=== PATIENT | female | born 1965 | race Caucasian/White ===

== ENCOUNTER 2019-03-26 21:20 | Emergency (ER) | payer BC ==
--- NOTE | 2019-03-26 22:27 | RADIOLOGY REPORT (SQ) ---
EXAM DESCRIPTION: XR WRIST 3 OR MORE VIEWS COMPLETED DATE/TME: 03/26/2019 21:37 CLINICAL HISTORY: 53 years, Female, bone tenderness COMPARISON: None. NUMBER OF VIEWS: 3 TECHNIQUE: 3 view left wrist LIMITATIONS: None. FINDINGS: Osteopenia. Comminuted and mildly displaced intra-articular fracture deformity of the distal radial metaphysis. Dorsal angulation. Associated soft tissue swelling. IMPRESSION: Comminuted intra-articular distal radial fracture copyright 2010 [employer]- All Rights Reserved
[2019-03-26] MEDS ORDERED: PROPOFOL INJ 200 MG/20 ML VIAL IV ONE (23:14)
[2019-03-26] MEDS ORDERED: MORPHINE SULFATE 10 MG/ML INJ IV ONE (23:14)
[2019-03-26] MEDS ORDERED: ONDANSETRON HCL INJ/PF 4 MG/2 ML SDV IV ONE (23:19)
--- NOTE | 2019-03-26 23:33 | ER Document Report ---
ED General - General Chief Complaint: Wrist Injury Stated Complaint: WRIST INJURY Time Seen by Provider: 03/26/19 22:53 Notes: 53-year-old female who was roller skating when she slipped and fell on her outstretched left hand. Has a deformity to her distal forearm and complains of numbness and tingling and difficulty moving the left first and second digit. Pain is a 5 out of 5. Denies any other associated injury. Denies taking any blood thinners. Last time she ate was at 3 PM today. - Related Data Allergies/Adverse Reactions: No Known Allergies Allergy (Verified 03/26/19 21:57) Home Medications: lipitor, pantoprazole, zoloft, zofran Past Medical History - General Information source: Patient, Relative - Social History Smoking Status: Never Smoker Frequency of alcohol use: Rare Drug Abuse: None Family History: Reviewed & Not Pertinent Patient has suicidal ideation: No Patient has homicidal ideation: No - Past Medical History Cardiac Medical History: Reports: Hx Hypercholesterolemia GI Medical History: Reports: Hx Gastroesophageal Reflux Disease Psychiatric Medical History: Reports: Hx Depression Review of Systems - Review of Systems Constitutional: No symptoms reported Cardiovascular: No symptoms reported Respiratory: No symptoms reported Gastrointestinal: No symptoms reported Musculoskeletal: See HPI Skin: No symptoms reported Hematologic/Lymphatic: No symptoms reported Neurological/Psychological: See HPI Physical Exam - Vital signs Vitals: Temp Pulse Resp BP Pulse Ox 98.0 F 80 18 130/84 H 96 03/26/19 21:36 03/26/19 21:36 03/26/19 21:36 03/26/19 21:36 03/26/19 21:36 - Notes Notes: GENERAL: Alert, interacts well. No acute distress. HEAD: Normocephalic, atraumatic EYES: Pupils equal, round and reactive to light, extraocular movements intact. ENT: Oral mucosa moist, tongue midline. NECK: Full range of motion, supple, trachea midline. LUNGS: Clear to auscultation bilaterally, no wheezes, rales or rhonchi, no respiratory distress. HEART: Regular rate and rhythm, no murmurs, gallops, rubs. EXTREMITIES: Moves all 4 extremities spontaneously, radial pulses 2/4 bilaterally. No cyanosis. Swelling and dorsal angulation of the distal aspect of the left wrist particularly on the radial side, tenderness to palpation. NEUROLOGICAL: Alert and oriented x3, normal speech, decreased sensation to the first and second digit of the left hand, able to move first and second digit some but not completely normally. PSYCH: Normal mood, normal affect. SKIN: Warm, Dry, normal turgor, no rashes or lesions noted. Course - Re-evaluation Re-evalutation: 03/27/19 00:[address] Leong, recommended reduction, patient was given the option of hematoma block versus conscious sedation, chose conscious sedation. Performed with propofol, reduced without difficulty. Patient is flying home to [place] on Friday, will follow up with orthopedic surgeon in [place]. - Vital Signs Vital signs: Temp Pulse Resp BP Pulse Ox 16 F L 76 17 155/87 H 98 03/26/19 23:49 03/27/19 00:00 03/27/19 00:00 03/27/19 00:00 03/27/19 00:00 Procedures - Conscious Sedation Conscious sedation Time started: 23:55 Time completed: 00:08 Consent obtained: Yes Indication: Left wrist fracture Last meal: 1500 Normal healthy pt.: P1. - ASA Classification Airway Evaluation: Normal anatomy Mallampati Classification: Class 1 Used during procedure: Suction available, IV access obtained, Pulse ox on pt., front desk monitor on pt. Medications administered: Diprivan Reversal agents: None I personally performed/intraservice time: Sedation, Procedure, 30 min or less Complications: No - Immobilization Left Wrist Pre-Proc Neuro Vasc Exam: Normal Immobilizer type: Sugar tong Performed by: Provider, PCT Post-Proc Neuro Vasc Exam: Normal, Unchanged from pre-exam Alignment checked and good: Yes - Joint Reduction/Fracture Care Left Wrist Consent obtained: Yes Conscious sedation: Yes Pre-procedure NV exam: Yes Fracture: Closed Post-procedure NV exam: Yes Post-reduction x-ray: Joint reduced Reduction attempts: 1 Complications: No Discharge - Discharge Clinical Impression: Distal radius fracture, left Qualifiers: Encounter type: initial encounter Fracture type: closed Fracture morphology: Colles' Qualified Code(s): S52.532A - Colles' fracture of left radius, initial encounter for closed fracture Condition: Stable Disposition: HOME, SELF-CARE Additional Instructions: Fractured Radius The bone called the radius is fractured. This type of fracture is typically caused by falling onto the outstretched hand. You will need to see an orthopedic surgeon when you get back to [place]. This is a comminuted distal intra-articular fracture that was previously dorsally angulated. This will likely need surgery. We did reduce him to the emergency department. It has been placed in a splint. A cast or splint is used to protect the fracture. For the first few days after the injury, the arm should be elevated and ice packed. Healing takes from three to eight weeks, depending on the age of the patient and the seriousness of the fracture. Your doctor has explained the treatment plan. It's important that you follow up as instructed to prevent complications. Call the doctor or return at once if severe pain or swelling occur, or if the hand becomes numb, swollen, or discolored. Prescriptions: Oxycodone HCl/Acetaminophen [Percocet 5-325 mg Tablet] 1 - 2 tab PO Q4HP PRN #15 tablet PRN Reason: Ondansetron [Zofran Odt 4 mg Tablet] 1 - 2 tab PO Q4H PRN #15 tab.rapdis PRN Reason: For Nausea/Vomiting Referrals: LUZ LEONG JR, DO [ACTIVE PROVISIONAL STAFF] - Follow up as needed
[2019-03-27] MEDS ORDERED: PROPOFOL INJ 200 MG/20 ML VIAL IV ONE ×2 (00:02→00:11)
[2019-03-27] MEDS ORDERED: OXYCODONE-ACETAMINOPHEN 5-325 MG TABLET PO ONE (00:11)
[2019-03-27 00:13] VITALS: BP 121/89
--- NOTE | 2019-03-27 00:40 | RADIOLOGY REPORT (SQ) ---
EXAM DESCRIPTION: XR WRIST 1-2 VIEWS COMPLETED DATE/TME: 03/27/2019 00:10 CLINICAL HISTORY: 53 years ,Female post-reduction COMPARISON: None. TECHNIQUE: LEFT wrist, two view FINDINGS: There is a comminuted intra-articular fracture of the distal radius. There has been some interval reduction of the fracture when compared to the previous study with improved alignment. Overlying cast material secures fine detail. IMPRESSION: Interval reduction of the comminuted intra-articular radial fracture with improved alignment
[2019-03-27] MEDS ORDERED: ONDANSETRON ODT 4 MG TAB (6 TAB/ER DISP) PO PRN (00:51)
[2019-03-27] MEDS ORDERED: HYDROCODONE/ACETAMINOPHEN 5-325 MG (6 TAB/ER DISP) PO PRN (00:51)
[2019-03-27] MEDS ORDERED: KETOROLAC TROMETHAMINE INJ/PF 30 MG/1 ML SDV IV ONE (01:03)
[2019-03-27] MEDS ORDERED: KETOROLAC TROMETHAMINE INJ/PF 30 MG/1 ML SDV ONE (01:05)
== END 2019-03-27 01:21 | disposition home or self-care (01) ==
LOC: ER 21:20
DX: S52.532A Colles' fracture of left radius, initial encounter for closed fracture (principal); V00.121A Fall from non-in-line roller-skates, initial encounter; Y93.51 Activity, roller skating (inline) and skateboarding; E78.00 Pure hypercholesterolemia, unspecified; K21.9 Gastro-esophageal reflux disease without esophagitis; F32.9 Major depressive disorder, single episode, unspecified; Z79.899 Other long term (current) drug therapy
CPT/HCPCS: 99283; 99152; 96374; 96375; 73100; 73110; 25605; J1885; J2270; J2405; J2704